=== PATIENT | male | born 1995 | race Caucasian/White ===

== ENCOUNTER 2020-11-03 12:55 | Emergency (ER) | payer BC ==
--- NOTE | 2020-11-03 13:08 | EDM.PDOC ---
ED HPI GENERAL MEDICAL PROBLEM - General Chief Complaint: Eye Problems Stated Complaint: R EYE COMPLAINT Time Seen by Provider: 11/03/20 13:08 Source of Information: Reports: Patient History Limitations: Reports: No Limitations - History of Present Illness INITIAL COMMENTS - FREE TEXT/NARRATIVE: 25-year-old male presents to the ED with foreign body sensation in his right eye he believes since October 22. 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 He has flushed his eye several times over the ensuing days without much relief. He was seen at the walk-in clinic at [facility] today and they identified a rust ring in the inferior portion of his right eye at the 7 o'clock position. Is unclear whether or not they ever identified a foreign body. The history suggested that attempts to remove it with a Q-tip failed and he was thus sent to the ED for removal of foreign body. Patient denies no visual acuity changes. He does not wear contact lenses or glasses. He does wear safety glasses most of the time. Onset: Sudden Onset Date: 10/22/20 (It is highly unlikely that he has had foreign body sensation in his eyes since 22 October without developing a very serious corneal infection.) Duration: Other (Known for sure.) Location: Reports: Face (Body sensation in right eye.) Quality: Reports: Ache, Other (Foreign body sensation with mild tearing and irritation of the eye) Severity: Mild Improves with: Reports: None Worsens with: Reports: None Context: Reports: Other (Foreign body sensation in right eye for several days.). 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 [No Known Home Meds] 11/03/20 [History] Social & Family History - Tobacco Use Tobacco Use Status *Q: Never Tobacco User - Caffeine Use Caffeine Use: Reports: None - Recreational Drug Use Recreational Drug Use: No - Living Situation & Occupation Living situation: Reports: Occupation: Employed ED ROS GENERAL - Review of Systems Review Of Systems: See Below Constitutional: Denies: Fever, Chills, Malaise, Weakness, Fatigue HEENT: Reports: Eye Pain (Foreign body sensation right eye for several days) Respiratory: Reports: No Symptoms Cardiovascular: Reports: No Symptoms Endocrine: Reports: No Symptoms GI/Abdominal: Reports: No Symptoms : Reports: No Symptoms Musculoskeletal: Reports: No Symptoms Skin: Reports: No Symptoms Neurological: Reports: No Symptoms Psychiatric: Reports: No Symptoms Hematologic/Lymphatic: Reports: No Symptoms Immunologic: Reports: No Symptoms ED EXAM GENERAL W FULL EYE - Physical Exam Exam: See Below Exam Limited By: No Limitations General Appearance: Alert, WD/WN, No Apparent Distress, Other (Temperature is 36.4 with a heart rate of 63 in sinus respiratory of 16 BP 109/80 pulse ox 98% room air) Eye Exam: Right Eye: Corneal Abrasion (On slit-lamp examination the patient has a rust ring at the 7 o'clock position approximately 2 mm from the limbus. No foreign bodies were identified.), Bilateral Eye: PERRL Visual Acuity (R) 20/: 20 Visual Acuity (L) 20/: 20 With Correction: No Eyelids: Right: Lid Everted for Exam (Foreign bodies identified.) Conjunctiva & Sclera: Bilateral: Normal Appearance, Foreign Body (Foreign bodies were identified identified) Cornea Exam: Bilateral: Other (I never did identify a corneal foreign body. Question whether was removed by physician at [facility] before attending the emergency department.) Extraocular Movements: Bilateral: Intact Pupillary Size: Bilateral: 6 mm Pupillary Reaction: Bilateral: Brisk Course - Vital Signs Last Recorded V/S: Last Vital Signs Temp 36.4 C 11/03/20 13:04 Pulse 63 11/03/20 13:04 Resp 16 11/03/20 13:04 BP 109/80 11/03/20 13:04 Pulse Ox 98 11/03/20 13:04 - Orders/Labs/Meds Meds: Medications Discontinued Medications Generic Name Dose Route Start Last Admin Trade Name Freq PRN Reason Stop Dose Admin Ciprofloxacin 5 ml 11/03/20 14:13 11/03/20 14:31 Ciloxan 0.3% Ophth Soln EYERT 11/03/20 14:14 2 drop ONETIME ONE Administration Ketorolac Tromethamine 3 ml 11/03/20 14:13 11/03/20 14:29 Acular 0.5% Ophth Soln EYERT 11/03/20 14:14 2 drop ONETIME ONE Administration - Radiology Interpretation Free Text/Narrative:: 25-year-old male presents to the ED for evaluation of foreign body sensation right eye he reports for the last several days. Possibly as far back as October 22 but I find this highly unlikely as he would have developed a significant corneal infection if it was that length of time. Patient was seen initially at the [facility] walk-in clinic and attempts to remove a metallic foreign body apparently were carried out with the aid of a Q-tip. On my examination no foreign bodies were identified but there is a rust ring at the 7 o'clock position 2 mm from the limbus. This was particularly noted on the slit-lamp exam. I was able to remove it with a darron without use of the slit-lamp. Patient be placed on ketorolac ophthalmic drops 2 drops every 6 hours as needed for pain relief. He will be placed on Cipro ophthalmic drops 2 drops every 8 hours for 2 days to prevent secondary infection. Double patches will be sent home with him to be put on if he has excessive pain or excessive tearing from light exposure. Departure - Departure Time of Disposition: 14:17 Disposition: Home, Self-Care 01 Condition: Fair Clinical Impression: Corneal rust ring of right eye - Discharge Information *PRESCRIPTION DRUG MONITORING PROGRAM REVIEWED*: Not Applicable *COPY OF PRESCRIPTION DRUG MONITORING REPORT IN PATIENT LISA: Not Applicable Instructions: Corneal Abrasion, [id number] Referrals: PCP,None [Primary Care Provider] - Forms: ED Department Discharge Additional Instructions: Evaluation in the emergency room today in regards to foreign body sensation right eye since around October 22. He was seen initially at the walk-in clinic at [facility] this morning and I was irrigated. It is questionable whether a foreign body may have been removed at that point time. On my evaluation no foreign body was identified within the cornea. There is a rust ring compatible with having had a foreign body in your right eye at the 7 o'clock position. The rust ring was burred away with the eye darron which leaves a little bit of a corneal abrasion. Take about a day or so to heal up. Suggest ketorolac drops 2 drops to the right eye every 6 hours as needed to relieve pain and discomfort. Cipro ophthalmic drops are antibiotic drops to be used 2 drops every 8 hours for 2 days to prevent secondary infection from occurring. Usually you will only need the ketorolac eyedrops for 1 day. The cornea will heal primarily overnight. If the eye is bothering you excessively after the numbing medicine wears off double eye patch could be applied to keep the eye closed as light continues to irritate the eye make you blink. Up is indicated if you are not completely back to normal in 36 hours time. Sepsis Event Note (ED) - Evaluation Sepsis Screening Result: No Definite Risk - Focused Exam Vital Signs: Vital Signs Temp Pulse Resp BP Pulse Ox 11/03/20 13:04 36.4 C 63 16 109/80 98
[2020-11-03] MEDS ORDERED: Ciprofloxacin 0.3% Ophth Soln 5 ML Bottle EYERT ONE (14:13)
[2020-11-03] MEDS ORDERED: Ketorolac 0.5% Ophth Soln 5 ML Bottle EYERT ONE (14:13)
== END 2020-11-03 14:37 | disposition home or self-care (01) ==
LOC: JD.ED 12:55
DX: H18.891 Other specified disorders of cornea, right eye (principal)
CPT/HCPCS: 65220; 99283; A9270